=== PATIENT | male | born 1970 | race Caucasian/White ===

== ENCOUNTER 2020-10-04 10:15 | Observation (INO) ==
[2020-10-04 10:58] LABS: Basophils % 0.3 %; Eosinophils # 0.1 K/mcL (0.0-0.6); Eosinophils % 1.5 %; Hematocrit 47.9 % (37.5-50.1); Hemoglobin 15.9 g/dL (12.9-16.9); Immature Granulocytes % 0.3 % (0-4); Lymphocytes # 1.9 K/mcL (0.6-4.6); Lymphocytes % 30.2 %; Mean Corpuscular HGB Conc 33.2 g/dL (31.6-35.5); Mean Corpuscular Hemoglobin 30.6 pg (28.0-33.3); Mean Corpuscular Volume 92.1 fL (83.0-100.0); Mean Platelet Volume 9.8 fL (9.4-12.4); Monocytes # 0.5 K/mcL (0.0-1.3); Monocytes % 8.1 %; Neutrophils # 3.7 K/mcL (1.6-8.9); Platelet Count 226 K/mcL (140-400); Red Cell Distribution Width 13.3 % (11.5-14.5); Segmented Neutrophils % 59.6 %; White Blood Count 6.2 K/mcL (4.3-11.1)
[2020-10-04 11:24] LABS: BUN/Creatinine Ratio 16 (6-26); Blood Urea Nitrogen 16 mg/dL (6-20); Calcium 9.6 mg/dL (8.6-10.3); Carbon Dioxide 28 mEq/L (23-29); Chloride 106 mEq/L (98-107); Glucose 118 mg/dL (70-105); Osmolality,Calculated 296 (280-300); Potassium 4.2 mEq/L (3.5-5.1); Sodium 142 mEq/L (136-145); Troponin I < 0.03 ng/mL (< 0.04); eGFR For African Americans > 60 (> 60); eGFR For Non-African Americans > 60 (> 60)
[2020-10-04 11:57] LABS: D-Dimer < 215 ng/mLFEU (0-500)
[2020-10-04] MEDS ORDERED: Aspirin 325 MG TABLET PO ONE (13:19)
[2020-10-04] MEDS ORDERED: Ondansetron 4 MG/2 ML VIAL IVP PRN (13:43)
[2020-10-04] MEDS ORDERED: Naloxone 0.4 MG/ML INJ IVP PRN (13:43)
[2020-10-04] MEDS ORDERED: Nitroglycerin 0.4 MG TAB.SUBL SL PRN (13:50)
[2020-10-04] MEDS ORDERED: Perflutren Lipid Microsphere 1.3 ML in 0.9 % Sodium Chloride 8.7 ML IVP PRN (13:52)
[2020-10-04 14:02] LABS: INR 1.1; Prothrombin Time 12.4 Seconds (9.4-12.1)
[2020-10-04 14:15] LABS: Activated Partial Thrombo Time 32.5 Seconds (26.0-36.0)
[2020-10-04] MEDS: Pantoprazole 40 MG VIAL IVP SCH (18:17)
[2020-10-04 19:39] VITALS: O2SAT 97
[2020-10-04] MEDS: *HR* Heparin 5,000 UNIT/ML VIAL SQ SCH (20:05)
[2020-10-05 01:17] LABS: Basophils % 0.5 %; Eosinophils # 0.2 K/mcL (0.0-0.6); Eosinophils % 2.5 %; Hematocrit 44.4 % (37.5-50.1); Lymphocytes # 2.7 K/mcL (0.6-4.6); Lymphocytes % 41.2 %; Mean Corpuscular HGB Conc 32.2 g/dL (31.6-35.5); Mean Corpuscular Hemoglobin 30.1 pg (28.0-33.3); Mean Corpuscular Volume 93.5 fL (83.0-100.0); Mean Platelet Volume 10.4 fL (9.4-12.4); Monocytes # 0.6 K/mcL (0.0-1.3); Monocytes % 9.4 %; Platelet Count 185 K/mcL (140-400); Red Blood Count 4.75 M/mcL (4.19-5.50); Red Cell Distribution Width 13.4 % (11.5-14.5); Segmented Neutrophils % 46.4 %; White Blood Count 6.5 K/mcL (4.3-11.1)
[2020-10-05 01:20] LABS: Hemoglobin 14.3 g/dL (12.9-16.9)
[2020-10-05 01:37] LABS: Alanine Aminotransferase 12 Units/L (7-52); Albumin/Globulin Ratio 1.7 (1.1-2.2); Alkaline Phosphatase 44 Units/L (34-104); Aspartate Amino Transferase 13 Units/L (13-39); BUN/Creatinine Ratio 17 (6-26); Bilirubin,Total 0.8 mg/dL (0.3-1.0); Blood Urea Nitrogen 21 mg/dL (6-20); Calcium 8.8 mg/dL (8.6-10.3); Carbon Dioxide 27 mEq/L (23-29); Chloride 106 mEq/L (98-107); Chol/HDL Ratio 6.5 (0-4.9); Cholesterol 247 mg/dL (< 200); Globulin 2.4 g/dL (2.4-3.5); Glucose 104 mg/dL (70-105); HDL Cholesterol 38 mg/dL (40-59); LDL Cholesterol,Calculated 155 mg/dL (< 100); Osmolality,Calculated 293 (280-300); Sodium 140 mEq/L (136-145); Total Protein 6.4 g/dL (6.4-8.9); Triglycerides 269 mg/dL (< 150); eGFR For African Americans > 60 (> 60); eGFR For Non-African Americans > 60 (> 60)
[2020-10-05] MEDS: *HR* Heparin 5,000 UNIT/ML VIAL SQ SCH (06:07)
[2020-10-05] MEDS: Pantoprazole 40 MG VIAL IVP SCH (06:08)
[2020-10-05] MEDS ORDERED: Regadenoson 0.4 MG/5 ML SYRINGE IVP ONE (06:26)
[2020-10-05] MEDS ORDERED: lisinopriL 5 MG TABLET PO SCH (09:00)
[2020-10-05] MEDS ORDERED: Aspirin Enteric Coated 81 MG Tablet PO SCH (09:00)
[2020-10-05] MEDS ORDERED: Pantoprazole 40 MG VIAL IVP SCH (09:00)
[2020-10-05 14:29] VITALS: BP 113/76; PULSE 67; TEMP 98.4
== END 2020-10-05 16:50 | disposition home or self-care (01) ==
LOC: EMEROOARM 10:15 → 3BNU 10:15
PROVIDERS: ADMIT Student in an Organized Health Care Education/Training Program; ATTEND Student in an Organized Health Care Education/Training Program